=== PATIENT | female | born 1990 | race Caucasian/White ===

== ENCOUNTER → 2024-02-14 | Outpatient (CLI) | payer OTHER ==
--- NOTE | 2024-02-15 20:21 | CT ---
EXAMINATION TYPE: CT abdomen pelvis wo/w con DATE OF EXAM: 02/14/2024 1:05 PM COMPARISON: None available at this location. CLINICAL INDICATION: Female, 33 years old with history of Z85.41 PERSONAL HISTORY OF MALIGNANT NEOPLA SM OF C, HX OF OVARIAN CA WITH HYSTERECTOMY TECHNIQUE: Axial images were obtained from above the diaphragm to the pubic rami in the axial plane a t 5 mm thick sections. Reconstructed images are reviewed on the computer in the coronal plane. CONTRAST: 100ML mL of Isovue 300. Study performed with Oral Contrast DLP: 1185.10 mGycm, Automated exposure control for dose reduction was used. FINDINGS: Limited CT sections are obtained the lung bases. The lung bases are clear. CT ABDOMEN: Liver: Normal Spleen: Normal Pancreas: Normal Adrenal glands: The adrenal glands are normal. Gallbladder: Normal Kidneys: No masses are evident. No hydronephrosis is present. No cysts are present. Delayed images were obtained through the kidneys, which remain unremarkable. Aorta: Vascular calcification is within the aorta. Inferior vena cava: Normal. CT PELVIS: No suspicious fluid collections evident in the abdomen and pelvis. No evidence. Loops of bowel within the abdomen and pelvis are normal. Diverticular changes are within the sigmoid colon. No adjacent inflammatory changes suggest acute diverticulitis. There are loops of bowel whi ch are incompletely distended or lack oral contrast limiting their evaluation. Appendix: Normal as visualized. Urinary bladder: Normal. Genitourinary structures: Uterus and ovaries are surgically absent. However, there appears to be some fullness bilaterally 1.9 cm on the left and 2.0 cm on the right. Osseous structures: No suspicious lytic or sclerotic lesions. IMPRESSION: 1. There appears to be residual tissue within the bilateral adnexa. Correlate with surgical history. 2. No suspicious intraperitoneal fluid or omental caking evident. 3. Note is made of sigmoid diverticulosis without acute diverticulitis. [facility], Workstation: [facility], 02/15/2024 8:19 PM
== END | disposition home or self-care (01) ==
LOC: RADCTMAIN 10:32
PROVIDERS: ATTEND Obstetrics & Gynecology
DX: K57.30 Diverticulosis of large intestine without perforation or abscess without bleeding (principal); Z85.41 Personal history of malignant neoplasm of cervix uteri; Z85.43 Personal history of malignant neoplasm of ovary
CPT/HCPCS: 74178; 36415; Q9967